=== PATIENT | male | born 1965 | race Caucasian/White ===

== ENCOUNTER 2019-12-17 11:21 | Emergency (ER) | payer MEDICARE ==
[2019-12-17 11:37] VITALS: BP 157/106
--- NOTE | 2019-12-17 12:21 | ER Document Report ---
HPI - HPI Time Seen by Provider: 12/17/19 11:47 Pain Level: Denies Notes: 54-year-old male patient presenting to the emergency department requesting a medication refill. Patient reports he needs a refill on his hydrocodone and his Valium. He takes hydrocodone for chronic pain. He takes Valium for anxiety. He reports that he is traveling from [place]. He states he has been here for several weeks staying with his son. He is unsure when he will return to [facility]. He denies any acute symptoms today. - ROS ROS below otherwise negative: Yes Past Medical History - General Information source: Patient - Social History Smoking Status: Current Every Day Smoker Chew tobacco use (# tins/day): No Frequency of alcohol use: Occasional Drug Abuse: None Family History: Reviewed & Not Pertinent Psychiatric Medical History: Reports: Hx Bipolar Disorder, Hx Depression Past Surgical History: Reports: Hx Orthopedic Surgery Vertical Provider Document - CONSTITUTIONAL Notes: PHYSICAL EXAMINATION: GENERAL: Well-appearing, well-nourished and in no acute distress. HEAD: Atraumatic, normocephalic. EYES: Pupils equal round extraocular movements intact, conjunctiva are normal. ENT: Nares patent NECK: Normal range of motion LUNGS: No respiratory distress Musculoskeletal: Normal range of motion NEUROLOGICAL: Normal speech, normal gait. PSYCH: Normal mood, normal affect. SKIN: Warm, Dry, normal turgor, no rashes or lesions noted. Course - Re-evaluation Re-evalutation: Patient educated that we are unable to refill controlled substances. Patient has been out of his medications for 3 weeks so I do not feel he will go through withdrawals at this point. I did offer him a prescription for hydroxyzine for his anxiety. Patient initially declined this stating that that has never worked for him in the past. Patient was not very happy that we could not give him refills on his hydrocodone and Valium. I did give him the number for several mental health providers as well as local primary care providers as he states he may stay in the area permanently. - Vital Signs Vital signs: Temp Pulse Resp BP Pulse Ox 98.2 F 88 18 157/106 H 98 12/17/19 11:36 12/17/19 11:36 12/17/19 11:36 12/17/19 11:36 12/17/19 11:36 Discharge - Discharge Clinical Impression: Request for medication refill Condition: Stable Disposition: HOME, SELF-CARE Additional Instructions: Unfortunately we are not able to refill controlled substances in the emergency department. You have been given a list of outpatient resources that may be able to help with your medications. Since you are taking these medications for mental health and chronic pain I would start by calling a mental health provider. We have also given you a few names of primary care providers in the area in case she would like to establish medical care here. They may be able to help with your chronic pain management or they may be able to refer you to a shipyard painter. Prescriptions: Hydroxyzine Pamoate [Vistaril 25 mg Capsule] 25 mg PO TIDP PRN #30 capsule PRN Reason: Referrals: DONAVON RUELAS MD [ACTIVE STAFF] - Follow up as needed REJI CHAVEZ MD [ACTIVE STAFF] - Follow up as needed [facility] [Provider Group] - Follow up as needed [facility] [Provider Group] - Follow up as needed
== END 2019-12-17 12:30 | disposition home or self-care (01) ==
LOC: ER 11:21
DX: Z76.0 Encounter for issue of repeat prescription (principal); G89.29 Other chronic pain; F41.9 Anxiety disorder, unspecified; F17.200 Nicotine dependence, unspecified, uncomplicated
CPT/HCPCS: 99283